=== PATIENT | female | born 2000 | race Two or more races ===

== ENCOUNTER 2022-08-04 10:15 | Inpatient (IN) | payer OTHER ==
[~2022-08-04] VITALS: Ht 175.3 cm; Wt 2.7 kg
[2022-08-10] MEDS ORDERED: IBUPROFEN800 MG PO (06:57)
== END 2022-08-10 11:36 | disposition home or self-care (01) | DRG 787 ==
LOC: EDSTATUS 10:15 → O/R 08-07 06:41 → OB/GYN 08-07 06:41
PROVIDERS: ADMIT Specialist; ATTEND Specialist
PROC: 4A1HXCZ Monitoring of Products of Conception, Cardiac Rate, External Approach (ICD-10-PCS; 2022-08-07)
PROC: 10D00Z1 Extraction of Products of Conception, Low, Open Approach (ICD-10-PCS; principal; 2022-08-07 20:45)
DX: O32.1XX0 Maternal care for breech presentation, not applicable or unspecified (principal); O41.03X0 Oligohydramnios, third trimester, not applicable or unspecified; Z3A.38 38 weeks gestation of pregnancy; Z37.0 Single live birth; Z20.822 Contact with and (suspected) exposure to COVID-19

== ENCOUNTER 2024-11-27 21:10 | Emergency (ER) | payer OTHER ==
[~2024-11-27] VITALS: Ht 175.3 cm; Wt 94.3 kg
[~2024-11-27 21:10] MED LIST: IBUPROFEN800 MG PO
[2024-11-27] MEDS ORDERED: DIPHENOXYLATE HCL/ATROPINE 1 UDTAB TABLET PO ONE (23:00)
[2024-11-27] MEDS ORDERED: ONDANSETRON HCL 2 MG/ML VIAL IV ONE (23:00)
[2024-11-27] MEDS ORDERED: FAMOTIDINE/PF 20 MG in 0.9 % SODIUM CHLORIDE 8 ML IV PUSH STA (23:00)
[2024-11-27] MEDS ORDERED: 0.9 % SODIUM CHLORIDE 1,000 ML IV SCH (23:15)
[2024-11-27] MEDS ORDERED: FAMOTIDINE/PF 20 MG/2 ML VIAL ONE (23:32)
[2024-11-27] MEDS ORDERED: ONDANSETRON HCL 2 MG/ML VIAL ONE (23:32)
[2024-11-28 00:03] LABS: HEMATOCRIT 38.6 % (36.0-45.00); HEMOGLOBIN 13.1 g/dL (12.0-15.00); MEAN CORPUSCULAR HEMOGLOBIN 29.9 pg (27.00-32.0); PLATELET COUNT 313 K/uL (150-450); RED BLOOD COUNT 4.38 M/uL (4.00-6.00); RED CELL DISTRIBUTION WIDTH 13.6 % (11.5-14.5)
[2024-11-28 00:43] LABS: ALBUMIN 3.4 gm/dL (3.4-5.0); BILIRUBIN TOTAL 0.31 mg/dL (0.3-1.2); CALCIUM 8.8 mg/dL (8.5-10.1); CREATININE SERUM 0.63 mg/dL (0.55-1.02); GFR 115.14; POTASSIUM 3.67 mEq/L (3.5-5.1); TOTAL PROTEIN 7.4 gm/dL (6.4-8.2)
== END 2024-11-28 02:21 | disposition home or self-care (01) ==
LOC: ER 21:12
PROVIDERS: General Practice
DX: O21.0 Mild hyperemesis gravidarum (principal); Z3A.01 Less than 8 weeks gestation of pregnancy; K52.89 Other specified noninfective gastroenteritis and colitis

== ENCOUNTER 2024-12-10 01:01 | Emergency (ER) | payer OTHER ==
[~2024-12-10] VITALS: Ht 175.3 cm; Wt 98.4 kg
[2024-12-10] MEDS ORDERED: 0.9 % SODIUM CHLORIDE 1,000 ML IV STA (02:27)
[2024-12-10] MEDS ORDERED: METOCLOPRAMIDE HCL 5 MG/ML VIAL IM STA (02:28)
[2024-12-10] MEDS ORDERED: FAMOtidine 40 MG TABLET PO STA (02:30)
[2024-12-10] MEDS ORDERED: PROMETHAZINE HCL 50 MG/ML AMPUL IM STA (02:30)
[2024-12-10] MEDS ORDERED: METOCLOPRAMIDE HCL 5 MG/ML VIAL ONE (02:37)
[2024-12-10] MEDS ORDERED: PROMETHAZINE HCL 50 MG/ML AMPUL IM ONE (02:37)
[2024-12-10] MEDS ORDERED: FAMOTIDINE/PF 20 MG/2 ML VIAL ONE (02:38)
[2024-12-10 03:04] LABS: HEMATOCRIT 40.2 % (36.0-45.00); HEMOGLOBIN 13.4 g/dL (12.0-15.00); MEAN CORPUSCULAR HGB CONC 33.3 g/dl (32.0-36.0); PLATELET COUNT 311 K/uL (150-450); RED BLOOD COUNT 4.47 M/uL (4.00-6.00); RED CELL DISTRIBUTION WIDTH 13.4 % (11.5-14.5)
[2024-12-10 03:40] LABS: CALCIUM 9.2 mg/dL (8.5-10.1); CREATININE SERUM 0.6 mg/dL (0.55-1.02); GFR 121.8; POTASSIUM 3.82 mEq/L (3.5-5.1)
== END 2024-12-10 05:59 | disposition home or self-care (01) ==
LOC: ER 01:02
DX: O21.0 Mild hyperemesis gravidarum (principal); Z3A.09 9 weeks gestation of pregnancy

== ENCOUNTER 2024-12-17 03:30 | Emergency (ER) | payer OTHER ==
[~2024-12-17] VITALS: Ht 175.3 cm; Wt 98.4 kg
[2024-12-17] MEDS ORDERED: FOLIC ACID20 MG (03:38)
[2024-12-17] MEDS ORDERED: PRENATABS FA T1 EACH (03:38)
[2024-12-17 03:39] VITALS: BP 109/77; O2SAT 98
[2024-12-17 05:43] LABS: URINE APPEARANCE Clear; URINE BILIRRUBIN Negative (NEGATIVE); URINE BLOOD Trace; URINE COLOR Yellow; URINE GLUCOSE Negative (NEGATIVE); URINE KETONE Negative (NEGATIVE); URINE LEUKOCYTE Negative; URINE NITRATE Negative; URINE PROTEIN Negative (NEGATIVE)
[2024-12-17 05:46] LABS: URINE BACTERIA 124.7 uL (0.0-1933); URINE EPITHELIAL CELLS 10.2 uL (0.0-38.8); URINE WBC 3.3 uL (0.0-23.2)
[2024-12-17 06:14] LABS: HEMATOCRIT 36.3 % (36.0-45.00); HEMOGLOBIN 12.2 g/dL (12.0-15.00); MEAN CELL VOLUME 89.4 fL (80.00-100.00); MEAN CORPUSCULAR HEMOGLOBIN 30.1 pg (27.00-32.0); MEAN CORPUSCULAR HGB CONC 33.7 g/dl (32.0-36.0); PLATELET COUNT 308 K/uL (150-450); RED BLOOD COUNT 4.06 M/uL (4.00-6.00); RED CELL DISTRIBUTION WIDTH 13.5 % (11.5-14.5)
== END 2024-12-17 07:00 | disposition home or self-care (01) ==
LOC: ER 03:31
PROVIDERS: General Practice
DX: O20.8 Other hemorrhage in early pregnancy (principal); Z3A.11 11 weeks gestation of pregnancy

== ENCOUNTER 2025-03-26 13:37 | Emergency (ER) | payer OTHER ==
[~2025-03-26] VITALS: Ht 177.8 cm; Wt 81.6 kg
[~2025-03-26 13:37] MED LIST changes: +FOLIC ACID20 MG; +PRENATABS FA T1 EACH
[2025-03-26] MEDS ORDERED: CLINDAMYCIN PHOSPHATE 150 MG/ML (600mg) IM STA (15:13)
[2025-03-26] MEDS ORDERED: ACETAMINOPHEN 500 MG GEL..CAP PO STA (15:14)
[2025-03-26] MEDS ORDERED: ACETAMINOPHEN 500 MG GEL..CAP PO ONE (15:23)
[2025-03-26] MEDS ORDERED: CLINDAMYCIN PHOSPHATE 150 MG/ML (300mg) ONE (15:23)
== END 2025-03-26 15:37 | disposition home or self-care (01) ==
LOC: ER 13:37
DX: Z34.90 Encounter for supervision of normal pregnancy, unspecified, unspecified trimester (principal); Z3A.24 24 weeks gestation of pregnancy; K05.219 Aggressive periodontitis, localized, unspecified severity

== ENCOUNTER 2025-04-29 12:59 | Outpatient (CLI) | payer OTHER ==
[~2025-04-29] VITALS: Ht 175.3 cm; Wt 106.1 kg
[2025-04-29 12:24] VITALS: BP 119/82
[2025-04-29] MEDS ORDERED: CLINDAMYCI75 MG/5 M1 (13:13)
[2025-04-29] MEDS ORDERED: ANTIBIOTIC28.4 GM TP (13:13)
[2025-04-29] MEDS ORDERED: RINGERS SOLUTION,LACTATED 1,000 ML IV SCH (13:30)
[2025-04-29 13:58] LABS: URINE APPEARANCE Clear; URINE BILIRRUBIN Negative (NEGATIVE); URINE BLOOD Negative; URINE COLOR Yellow; URINE GLUCOSE Negative (NEGATIVE); URINE KETONE Trace (NEGATIVE); URINE LEUKOCYTE Negative; URINE NITRATE Negative; URINE PROTEIN Negative (NEGATIVE); URINE UROBILINOGEN 0.2 E.U./dl
[2025-04-29 14:02] LABS: URINE BACTERIA 1331.9 uL (0.0-1933); URINE EPITHELIAL CELLS 42.9 uL (0.0-38.8); URINE RBC 3.9 uL (0.0-20.8); URINE WBC 17.8 uL (0.0-23.2)
[2025-04-29 14:03] LABS: BASO % 0.2 % (0.1-1.2); EOS # 0.07 (0.04-0.54); EOS % 0.7 % (0.7-7.0); LYMPH # 1.54 (1.18-3.74); LYMPH % 16.1 % (19.3-53.1); MEAN PLATELET VOLUME 10.10 fl (9.4-12.4); MONO # 0.73 (0.24-0.82); MONO % 7.6 % (4.7-12.5); NEUT # 7.14 (1.56-6.13); NEUT % 74.9 % (34.0-71.1); RED CELL DISTRIBUTION WIDTH 13.2 % (11.6-14.4)
[2025-04-29 14:04] LABS: URINE CAST 0.14 uL (0.0-1.40)
[2025-04-29 14:23] LABS: INR 1.0
[2025-04-29 14:27] LABS: ALT/SGPT 12.0 U/L (12-78); AST/SGOT 10.0 U/L (15-37); BILIRUBIN TOTAL 0.26 mg/dL (0.3-1.2); BUN CREA RATIO 16.0 (7.0-25.0); CREATININE SERUM 0.37 mg/dL (0.55-1.02); GFR 212.79; GLOBULINA 3.2 G/DL (2.4-3.5); GLUCOSE FASTING 74.0 mg/dL (65-100); OSMOLALITY SERUM 270.0 MOSM/KG (275-295)
[2025-04-29 15:28] VITALS: BP 104/71
[2025-04-29 19:55] VITALS: BP 91/58
[2025-04-29 23:18] VITALS: BP 101/65
[2025-04-30 03:12] VITALS: BP 95/63
[2025-04-30 06:21] VITALS: BP 91/67; O2SAT 98
[2025-04-30 11:28] VITALS: BP 91/57
[2025-04-30 15:43] VITALS: BP 100/67
[2025-04-30 19:36] VITALS: BP 100/67
== END 2025-04-30 19:55 | disposition home or self-care (01) ==
LOC: OBS/DEL 12:59
PROVIDERS: Obstetrics & Gynecology; ATTEND Obstetrics & Gynecology
DX: O26.893 Other specified pregnancy related conditions, third trimester (principal); T14.8XXA Other injury of unspecified body region, initial encounter; W18.30XA Fall on same level, unspecified, initial encounter; O60.00 Preterm labor without delivery, unspecified trimester; O26.899 Other specified pregnancy related conditions, unspecified trimester; Z3A.31 31 weeks gestation of pregnancy

== ENCOUNTER 2025-05-24 11:09 | Outpatient (CLI) | payer OTHER ==
[~2025-05-24 11:09] MED LIST changes: +ANTIBIOTIC28.4 GM TP; +CLINDAMYCI75 MG/5 M1
== END 2025-05-24 11:11 | disposition home or self-care (01) ==
LOC: PRENATAL 11:09
PROVIDERS: ATTEND Obstetrics & Gynecology Maternal & Fetal Medicine
DX: O26.849 Uterine size-date discrepancy, unspecified trimester (principal); Z3A.33 33 weeks gestation of pregnancy

== ENCOUNTER 2025-06-29 09:15 | Inpatient (IN) | payer OTHER ==
[~2025-06-29] VITALS: Ht 175.3 cm; Wt 110.2 kg
[2025-06-29 11:11] LABS: BASO % 0.3 % (0.1-1.2); EOS # 0.04 (0.04-0.54); EOS % 0.5 % (0.7-7.0); LYMPH # 1.24 (1.18-3.74); LYMPH % 14.3 % (19.3-53.1); MEAN PLATELET VOLUME 10.30 fl (9.4-12.4); MONO # 0.68 (0.24-0.82); MONO % 7.9 % (4.7-12.5); NEUT # 6.63 (1.56-6.13); NEUT % 76.7 % (34.0-71.1); RED CELL DISTRIBUTION WIDTH 13.4 % (11.6-14.4)
[2025-06-29 11:13] LABS: URINE APPEARANCE Clear; URINE BILIRRUBIN Negative (NEGATIVE); URINE BLOOD Negative; URINE COLOR Yellow; URINE GLUCOSE Negative (NEGATIVE); URINE KETONE Negative (NEGATIVE); URINE LEUKOCYTE Small; URINE NITRATE Negative; URINE PROTEIN Trace (NEGATIVE); URINE UROBILINOGEN 1.0 E.U./dl
[2025-06-29 11:14] LABS: URINE BACTERIA 6783.6 uL (0.0-1933); URINE EPITHELIAL CELLS 20.3 uL (0.0-38.8); URINE RBC 7.1 uL (0.0-20.8); URINE WBC 132.1 uL (0.0-23.2)
[2025-06-29 11:30] LABS: URINE CAST 0.43 uL (0.0-1.40)
[2025-06-29 11:32] LABS: URINE YEAST NEGATIVE /hpf
[2025-06-29 11:40] LABS: INR 0.98
[2025-07-04 04:21] VITALS: BP 137/84; O2SAT 98
[2025-07-04] MEDS ORDERED: RINGERS SOLUTION,LACTATED 1,000 ML IV SCH ×2 (05:00→12:00)
[2025-07-04] MEDS ORDERED: OXYTOCIN 10 UNITS/ML VIAL ONE (05:30)
[2025-07-04] MEDS ORDERED: ERYTHROMYCIN BASE OPHT 1GM EACH TUBE OP ONE (05:31)
[2025-07-04] MEDS ORDERED: CEFAZOLIN SODIUM 1,000 MG VIAL ONE (07:09)
[2025-07-04] MEDS ORDERED: KETOROLAC TROMETHAMINE 60 MG VIAL IM STA (11:58)
[2025-07-04] MEDS ORDERED: CHLORHEXIDINE GLUCONATE 120 ML BOTTLE TOP SCH (12:00)
[2025-07-04] MEDS ORDERED: MORPHINE SULFATE 4 MG/ML CARTRIDGE IV PRN (12:00)
[2025-07-04] MEDS ORDERED: OXYTOCIN 1,000 ML IV SCH (12:00)
[2025-07-04 13:37] LABS: BASO % 0.2 % (0.1-1.2); EOS # 0.02 (0.04-0.54); EOS % 0.2 % (0.7-7.0); LYMPH # 1.16 (1.18-3.74); LYMPH % 9.8 % (19.3-53.1); MEAN PLATELET VOLUME 10.40 fl (9.4-12.4); MONO # 0.94 (0.24-0.82); MONO % 8.0 % (4.7-12.5); NEUT # 9.64 (1.56-6.13); NEUT % 81.5 % (34.0-71.1); RED CELL DISTRIBUTION WIDTH 13.2 % (11.6-14.4)
[2025-07-04 17:34] VITALS: BP 108/68
[2025-07-05 03:00] VITALS: BP 114/78
[2025-07-05 08:00] VITALS: BP 114/78
[2025-07-05] MEDS ORDERED: OxyCODONE HCL 5 MG TABLET (ROXICODONE) PO PRN (09:00)
[2025-07-05] MEDS ORDERED: ACETAMINOPHEN 325 MG TABLET PO PRN (09:00)
[2025-07-05] MEDS ORDERED: FF) RHO(D) IMMUNE GLOBULIN (POM) IM ONE (12:45)
[2025-07-05 16:40] VITALS: BP 103/72
[2025-07-06 02:29] VITALS: BP 108/67
[2025-07-06 08:00] VITALS: BP 122/80
[2025-07-06 15:52] VITALS: BP 115/81
[2025-07-07 00:10] VITALS: BP 115/76
[2025-07-07 10:23] VITALS: BP 124/84
[2025-07-07] MEDS ORDERED: PRENATAL VITAM1 EAC6 PO (14:40)
[2025-07-07] MEDS ORDERED: SIMETHICONE125 M1 PO (14:40)
[2025-07-07] MEDS ORDERED: IBU800 MG PO (14:40)
[2025-07-07] MEDS ORDERED: ACETAMINOPHEN500 M1 PO (14:40)
[2025-07-07] MEDS ORDERED: COLACE100 MG PO (14:40)
== END 2025-07-07 16:53 | disposition home or self-care (01) | DRG 785 ==
LOC: LDR 07-04 04:30 → OB/GYN 07-04 04:30 → O/R 07-04 09:55 → OB/GYN 07-04 12:00
PROVIDERS: ADMIT Obstetrics & Gynecology; ATTEND Obstetrics & Gynecology
PROC: 0UB70ZZ Excision of Bilateral Fallopian Tubes, Open Approach (ICD-10-PCS; 2025-07-04)
PROC: 4A1HXCZ Monitoring of Products of Conception, Cardiac Rate, External Approach (ICD-10-PCS; 2025-07-04)
PROC: 10D00Z1 Extraction of Products of Conception, Low, Open Approach (ICD-10-PCS; principal; 2025-07-04 12:00)
DX: O34.211 Maternal care for low transverse scar from previous cesarean delivery (principal); Z3A.38 38 weeks gestation of pregnancy; Z30.2 Encounter for sterilization; Z37.0 Single live birth